=== PATIENT | male | born 1940 | race Caucasian/White ===

== ENCOUNTER → 2016-09-05 | Outpatient (CLI) | payer OTHER ==
[~2016-09-05] MED LIST: ASPIRIN325 MG PO; COZAAR100 MG PO; DESYREL100 MG PO; DOXYCYCLINE HY100 MG PO; FERROUS SULFAT325 MG PO; FLONASE ALLERG9.9 ML BOTH NARES; HYDROCHLOROTHIA50 MG PO; LIPITOR20 MG PO; PRILOSEC20 MG PO; TRAMADOL HCL50 MG PO
== END | disposition home or self-care (01) ==
DX: M17.11 Unilateral primary osteoarthritis, right knee (principal); M25.561 Pain in right knee; M25.661 Stiffness of right knee, not elsewhere classified; R26.2 Difficulty in walking, not elsewhere classified; M62.89 Other specified disorders of muscle
CPT/HCPCS: 97110 GP; 97150 GO; 97161 GP; 97165 GO; G8978 GP; G8979 GP; G8980 GP; G8987 GO; G8988 GO; G8989 GO

== ENCOUNTER 2016-09-25 06:49 | Inpatient (IN) | payer OTHER ==
[~2016-09-25] VITALS: Ht 177.8 cm; Wt 115.0 kg
[2016-09-25 07:52] VITALS: BP 162/72
[2016-09-25 12:32] LABS: HEMATOCRIT 35.7 % (38.0-50.0); MCH 31.9 PG (29.0-34.0); MCHC 34.5 G/DL (30.0-36.0); MCV 92.7 FL (86-99); PLATELET COUNT 171 K/uL (156-360); RBC DIS.WIDTH-CV 13.3 % (11.8-14.6); RBC DIS.WIDTH-SD 44.5 % (39-53); RED BLOOD COUNT 3.85 M/uL (4.00-5.50); WHITE BLOOD COUNT 9.5 K/uL (4.1-10.2)
[2016-09-25 16:30] VITALS: BP 194/84
[2016-09-25 20:35] VITALS: BP 194/81
[2016-09-26] VITALS (7 sets, daily range): BP systolic 117–191; BP diastolic 62–81
[2016-09-26 06:28] LABS: HEMATOCRIT 34.3 % (38.0-50.0); MCV 92.7 FL (86-99)
[2016-09-26 06:53] LABS: ANION GAP 5 MEQ/L (2-14); CHLORIDE 106 MEQ/L (99-109); GFR ESTIMATE (CALCULATED) > 59 mL/min/; GLUCOSE 111 mg/dL (70-99); POTASSIUM 4.3 MEQ/L (3.7-5.4); SAMPLE HEMOLYSIS CHECK 0; SAMPLE ICTERIC CHECK 0; SAMPLE LIPEMIA CHECK 0; SODIUM 137 MEQ/L (136-147); UREA NITROGEN (BUN) 20 mg/dL (9-23)
[2016-09-27 00:43] VITALS: BP 174/73
[2016-09-27 04:25] VITALS: BP 160/79
[2016-09-27 05:53] LABS: HEMATOCRIT 32.9 % (38.0-50.0); MCV 92.2 FL (86-99)
[2016-09-27 07:49] VITALS: BP 168/70
[2016-09-27] MEDS ORDERED: SENNA PLUS TAB1 EACH PO (08:44)
[2016-09-27] MEDS ORDERED: ENDOCET 5-3251 EACH PO (08:44)
[2016-09-27] MEDS ORDERED: LOVENOX40 MG/0.4 SC (08:44)
== END 2016-09-27 15:31 | disposition home or self-care (01) | DRG 470 ==
LOC: 3EAST 06:49 → 2SOUTH 06:49 → 3EAST 15:45
PROVIDERS: Orthopaedic Surgery
PROC: 0SRC0J9 Replacement of Right Knee Joint with Synthetic Substitute, Cemented, Open Approach (ICD-10-PCS; principal; 2016-09-25)
DX: M17.11 Unilateral primary osteoarthritis, right knee (principal); I10 Essential (primary) hypertension; R00.1 Bradycardia, unspecified; I44.0 Atrioventricular block, first degree; I44.4 Left anterior fascicular block; E78.5 Hyperlipidemia, unspecified; G47.30 Sleep apnea, unspecified; J32.9 Chronic sinusitis, unspecified; H26.9 Unspecified cataract; K44.9 Diaphragmatic hernia without obstruction or gangrene; Z68.35 Body mass index [BMI] 35.0-35.9, adult; Z85.89 Personal history of malignant neoplasm of other organs and systems
CPT/HCPCS: 36415; 73560; 80048; 85014; 85018; 85027; 86850; 86900; 86901; 93005; J0131; J0171; J0690; J1170; J1650; J1885; J2405; J2795; J3010; J7030; J7050